=== PATIENT | female | born 1960 | race Caucasian/White ===

== ENCOUNTER 2017-09-22 05:30 | Day surgery (SDC) | payer BC ==
[2017-09-21 10:25] LABS: BASOPHILS 1.1 % (0-2); EOSINOPHILS 2.7 % (0-7); HEMATOCRIT 42.2 % (36.0-48.0); HEMOGLOBIN 14.3 g/dL (12-16); IMMATURE GRANULOCYTES 0.2 % (0-5); LYMPHOCYTES 46.9 % (15-50); MCH 31.3 pg (26.0-34.0); MCHC 33.9 g/dL (31.0-37.0); MCV 92.3 fL (80.0-100.0); MEAN PLATELET VOLUME 10.5 fL (7.4-10.4); MONOCYTES 9.2 % (2-11); NEUTROPHILS 39.9 % (40-80); PLATELET COUNT 239 10x3/uL (130-400); RBC 4.57 10x6/uL (4.00-5.40); RDW 12.3 % (11.5-14.5); WBC 6.6 10x3/uL (4.8-10.8)
[~2017-09-22] VITALS: Ht 170.2 cm; Wt 81.2 kg
--- NOTE | ~2017-09-22 | OP ---
PATIENT NAME: SADAF GOODMAN MEDICAL RECORD: [id number] :58 LOCATION:[facility] ADMISSION DATE: SURGEON: JONAH COLEMAN MD DATE OF OPERATION: 09/22/2017 PREOPERATIVE DIAGNOSES: 1. Postmenopausal bleeding. 2. Cervical stenosis. POSTOPERATIVE DIAGNOSES: 1. Postmenopausal bleeding. 2. Cervical stenosis. PROCEDURE: Dilation and curettage with hysteroscopy. ANESTHESIA: Jonah Coleman MD ANESTHESIOLOGIST: Dom Waters MD ANESTHETIC: General anesthetic with endotracheal intubation. FINDINGS: Uterus sounds to 9 cm. The vaginal atrophy is noted. There is minimal gland activity. No masses. The cervix is stenotic. SPECIMENS REMOVED: Endometrial curettings. SPECIMEN DISPOSITION: Pathology. ESTIMATED BLOOD LOSS: Less than or equal to 50 cc. FLUIDS: 600 cc lactated Ringer's. URINE OUTPUT: Quantity sufficient void prior to the procedure. COMPLICATIONS: None. DRAINS: None. INDICATIONS: The patient is a 57-year-old female with postmenopausal bleeding. The patient has been on HRT in the past. The patient has attempted endometrial biopsy times 2 in the office with noted cervical stenosis. She is consented for dilation and curettage with hysteroscopy. DESCRIPTION OF PROCEDURE: After informed consent was assured, the patient was taken to the operating room where anesthetic was obtained without difficulty. The patient was prepped and draped and placed in stirrups. The speculum was introduced in the vagina. The cervix grasped and then serially dilated using uterine sound and Hanks dilators. Dilations concluded when hysteroscope is able to pass freely through the internal os. The visualization of the uterine cavity is unremarkable with the above findings. The patient now has the hysteroscopy discontinued. Further dilation of the cervix is concluded until #2 sharp curette could be passed easily into the uterus and curettage was performed with good cry throughout. Scant tissue was returned and sent to pathology. The single tooth tenaculum was removed from the cervix. Puncture sites were noted to be hemostatic. The patient has now had speculum removed and is taken down OPERATIVE REPORT [id number] SADAF GOODMAN from the stirrups and sent to the recovery room in stable condition. TRANSINT:[id number] Voice Confirmation ID: [id number] DOCUMENT ID: [id number] JONAH COLEMAN MD CC: [id number] DICTATION DATE: 10/06/17 0840 SPOOL WORKER: 10/06/17 1113 [facility] 09/22/17 [facility] [id number] [id number]
[~2017-09-22 05:30] MED LIST: ESSENTIAL OILS PO; HAIR VITAMIN PO
[2017-09-22 06:11] VITALS: BP 121/67; Ht 170.2 cm; Wt 81.2 kg
== END 2017-09-22 09:50 | disposition home or self-care (01) ==
LOC: D.OPS 05:30 → D.PAN 07:30 → D.OPS 09:50
PROVIDERS: Obstetrics & Gynecology
DX: N95.0 Postmenopausal bleeding (principal); N88.2 Stricture and stenosis of cervix uteri

== ENCOUNTER → 2018-02-14 15:59 | Outpatient (CLI) | payer BC ==
[2017-09-22 06:11] VITALS: BMI 28.1
== END | disposition home or self-care (01) ==
LOC: D.MAMMO 09:30
DX: Z12.31 Encounter for screening mammogram for malignant neoplasm of breast (principal)

== ENCOUNTER → 2019-02-23 09:00 | Outpatient (CLI) | payer BC ==
[2017-09-22 06:11] VITALS: BMI 28.1
== END | disposition home or self-care (01) ==
LOC: D.MAMMO 09:00
PROVIDERS: ATTEND Nurse Practitioner
DX: Z12.31 Encounter for screening mammogram for malignant neoplasm of breast (principal)

== ENCOUNTER → 2019-04-25 10:16 | Outpatient (CLI) | payer BC ==
[2017-09-22 06:11] VITALS: BMI 28.1
== END | disposition home or self-care (01) ==
LOC: D.HCCECHO 10:16
PROVIDERS: ATTEND Internal Medicine Cardiovascular Disease
DX: I34.0 Nonrheumatic mitral (valve) insufficiency (principal)